=== PATIENT | male | born 1985 | race Caucasian/White ===

== ENCOUNTER 2024-04-24 03:12 | Emergency (ER) | payer OTHER ==
[~2024-04-24] VITALS: Ht 177.8 cm; Wt 111.4 kg
[~2024-04-24 03:12] MED LIST: NO HOME MEDS
[2024-04-24 03:28] VITALS: BP 164/91; PULSE 59; RESP 14; TEMP 98.7; O2SAT 99
[2024-04-24] MEDS ORDERED: AMOX500C2 PO (05:12)
[2024-04-24] MEDS: amoxicillin 250mg capsule PO ONE (05:14)
[2024-04-24] MEDS: acetaminophen 325mg tablet PO ONE (05:14)
== END 2024-04-24 05:20 | disposition home or self-care (01) ==
LOC: ER 03:13
DX: K08.89 Other specified disorders of teeth and supporting structures (principal)
CPT/HCPCS: 99283